=== PATIENT | male | born 1955 | race Caucasian/White ===

== ENCOUNTER → 2017-04-22 | Outpatient (CLI) | payer OTHER ==
[~2017-04-22] MED LIST: ASPIRIN PO; CALAN PO; LEXAPRO PO; LOZOL PO
--- NOTE | ~2017-04-22 | CT4 ---
[facility]. [facility] A Service of [facility] RADIOLOGY TEXT RESULTS PATIENT: TONA CRANE LOCATION: [facility] : 57 UNIT #: [id number] AGE: [address]: Luis Alberto Holly MD SEX: M ORDER DR: [id number] [place] [id number] O MR#: [id number] Acc #: [id number] NAME: TONA CRANE : 1955 SEX: M STUDY DATE/TIME: 04/22/2017 10:38 UNIT: [facility] ROOM: STUDY DESCRIPTION: CT Abd and Pelv Wo Cont Attending Physician: Luis Alberto Holly M.D. Referring Physician: Luis Alberto Holly M.D. Ordering Physician: Luis Alberto Holly M.D. Primary Care Physician: Luis Alberto Holly M.D. MEDICAL IMAGING REPORT This report is preliminary unless electronic signature is present. EXAM CT abdomen and pelvis 04/22 INDICATIONS Right side abdominal pain for 1 week with nausea. TECHNIQUE Axial images were obtained through the abdomen and pelvis without contrast. Multiplanar reformats were obtained. No comparison abdomen or pelvis CT. The CT exam was performed with one or more of the following radiation dose reduction techniques: automatic exposure control, adjustment of mA and/or kV according to patient size, and iterative reconstruction. FINDINGS Abdomen: There is some chronic right middle lobe scarring. Gallbladder is unremarkable. No renal or ureteral stones are seen. No hydronephrosis. The unenhanced solid organs are normal. The opacified GI tract is normal. No free fluid or adenopathy are seen. Pelvis: There are no lower ureteral stones. The bladder is within normal limits. There is sigmoid diverticulosis. The unopacified GI tract, including the appendix, is otherwise normal. There are bilateral fat containing inguinal herniae right greater than left. IMPRESSION 1. No acute findings in the abdomen and pelvis. 2. No renal or ureteral stones. No hydronephrosis. 3. Sigmoid diverticulosis. The GI tract, including the appendix, is otherwise normal. [facility] A Service of [facility] RADIOLOGY TEXT RESULTS PATIENT: TONA CRANE LOCATION: [facility] : 57 UNIT #: [id number] AGE: [address]: Luis Alberto Holly MD SEX: M ORDER DR: 4. Bilateral fat containing inguinal hernias, right larger than left. Dictated by... Mack Quiroz Jr., M.D. THIS IS AN ELECTRONICALLY VERIFIED REPORT Mack Quiroz Jr., M.D. at 04/22/2017 3:39 PM GEORGE/cfeerino TD: 04/22/2017 14:56 JOB #: [id number] MEDICAL IMAGING REPORT Page 1 of 1
== END | disposition home or self-care (01) ==
LOC: SCT 10:24
DX: R10.31 Right lower quadrant pain (principal); K57.30 Diverticulosis of large intestine without perforation or abscess without bleeding; K40.20 Bilateral inguinal hernia, without obstruction or gangrene, not specified as recurrent
CPT/HCPCS: 74176

== ENCOUNTER → 2017-06-25 | Outpatient (CLI) | payer OTHER ==
--- NOTE | ~2017-06-25 | US6 ---
[facility] A Service of [facility] RADIOLOGY TEXT RESULTS PATIENT: TONA CRANE LOCATION: [facility] : 57 UNIT #: [id number] AGE: [address]: ZOE WAYNE APRN SEX: M ORDER DR: [id number] [facility] [address] [place], [place] [address] [id number] O MR#: [id number] Acc #: [id number] NAME: TONA CRANE : 1955 SEX: M STUDY DATE/TIME: 06/25/2017 10:13 UNIT: [facility] ROOM: STUDY DESCRIPTION: US Abdominal Limited Attending Physician: Zoe Wayne Aprn Referring Physician: Zoe Wayne Aprn Ordering Physician: Zoe Wayne Aprn Primary Care Physician: Luis Alberto Holly M.D. MEDICAL IMAGING REPORT This report is preliminary unless electronic signature is present EXAM Right upper quadrant ultrasound 06/25/2017 HISTORY Right upper quadrant abdominal pain and nausea for 3 months. FINDINGS The liver demonstrates an increase in echotexture with attenuation of the ultrasound beam characteristic of fatty infiltration. No cystic or solid mass lesions were seen in the liver. The intra and extrahepatic bile ducts are not dilated. The gallbladder is normal with no evidence of cholelithiasis, wall thickening or pericholecystic fluid. Common duct measures 3 mm. The pancreas and right kidney are normal. IMPRESSION Fatty infiltration of the liver. Otherwise negative right upper quadrant ultrasound. Dictated by... Nicolas Alvarez M.D. THIS IS AN ELECTRONICALLY VERIFIED REPORT Nicolas Alvarez M.D. at 06/26/2017 7:49 AM MOSHE/juliet TD: 06/25/2017 14:51 JOB #: [id number] MEDICAL IMAGING REPORT Page 1 of 1 COPY
== END | disposition home or self-care (01) ==
LOC: CGUS 09:38
DX: R10.11 Right upper quadrant pain (principal); K76.0 Fatty (change of) liver, not elsewhere classified
CPT/HCPCS: 76705